=== PATIENT | male | born 1975 | race Caucasian/White ===

== ENCOUNTER 2018-03-20 15:53 | Emergency (ER) | payer OTHER ==
[~2018-03-20] VITALS: Ht 180.3 cm; Wt 70.9 kg
[2018-03-20 15:57] VITALS: TEMP 98.8
[2018-03-20] MEDS ORDERED: YEAST PO (16:04)
[2018-03-20] MEDS ORDERED: [UNRECOGNIZED DRUG - OTHER] PO (16:05)
[2018-03-20] MEDS ORDERED: THEROMEGA1000 MG PO (16:06)
[2018-03-20] MEDS ORDERED: [UNRECOGNIZED DRUG - OTHER] PO (16:06)
[2018-03-20] MEDS ORDERED: COD LIVER OIL118 ML PO (16:07)
[2018-03-20] MEDS ORDERED: MCT OIL PO (16:07)
[2018-03-20] MEDS ORDERED: TURMERIC500 MG PO (16:08)
[2018-03-20 16:12] LABS: BASO # 0.1 (0.0-0.2); EOS # 0.2 (0.0-0.7); EOS % 3.7 % (0-4.0); GRAN # 2.8 (1.4-6.5); GRAN % 44.5 % (42.2-75.2); HEMOGLOBIN 15.7 g/dl (13.5-18.0); LYMPH # 2.5 (1.2-3.4); LYMPH % 39.7 % (20.0-51.0); MEAN CELL VOLUME 102 fl (80.0-100.0); MEAN CORPUSCULAR HEMOGLOBIN 36 pg (27.0-31.0); MEAN CORPUSCULAR HGB CONC 36 g/dl (33.0-37.0); MEAN PLATELET VOLUME 10.1 fl (7.4-10.4); MONO # 0.7 (0.1-0.6); MONO % 10.8 % (1.7-9.3); PLATELET COUNT 201 K/mm3 (130-400); RED BLOOD COUNT 4.32 M/mm3 (4.20-5.60); REDCELL DISTRIBUTION WIDTH-CV 11.3 % (11.5-14.5)
[2018-03-20 16:19] LABS: INR 0.9 (0.8-3.0); PROTHROMBIN TIME 10.2 SECONDS (9.7-12.8)
[2018-03-20 16:22] LABS: ALANINE AMINOTRANSFERASE 70 U/L (21-72); ALBUMIN 4.7 gm/dL (3.5-5.0); ALKALINE PHOSPHATASE 49 U/L (50-136); ANION GAP 15 mmol/L (7-16); AST,SGOT 51 U/L (15-37); BILIRUBIN,TOTAL 0.8 mg/dL (0.0-1.0); BLOOD UREA NITROGEN 12 mg/dL (9-20); CALCIUM 9.5 mg/dL (8.4-10.2); CARBON DIOXIDE 27 mmol/L (22-30); CHLORIDE 95 mmol/L (98-107); CREATININE, serum 0.76 mg/dL (0.66-1.25); GLUCOSE 104 mg/dL (74-106); POTASSIUM 3.5 mmol/L (3.4-5.0); SODIUM 137 mmol/L (137-145); TOTAL PROTEIN 7.9 gm/dL (6.4-8.2)
[2018-03-20 16:36] LABS: TROPONIN-I < 0.012 ng/mL (0.000-0.034)
[2018-03-20 19:20] VITALS: BP 115/75; PULSE 69
== END 2018-03-20 19:20 | disposition home or self-care (01) ==
LOC: COL.ER 15:53
PROVIDERS: Emergency Medicine
DX: R07.9 Chest pain, unspecified (principal); F17.210 Nicotine dependence, cigarettes, uncomplicated
CPT/HCPCS: J1885; J7030